=== PATIENT | male | born 1945 | race Caucasian/White ===

== ENCOUNTER 2021-01-22 09:37 | Outpatient (CLI) | payer MEDICARE, BC | END 2021-01-22 09:38 | disposition home or self-care (01) | LOC: CSHRAD 09:37 | PROVIDERS: ATTEND Internal Medicine | DX: M54.59 Other low back pain (principal); M47.816 Spondylosis without myelopathy or radiculopathy, lumbar region; M48.56XA Collapsed vertebra, not elsewhere classified, lumbar region, initial encounter for fracture | CPT/HCPCS: 72100 ==

== ENCOUNTER 2021-02-12 08:05 | Outpatient (CLI) | payer MEDICARE, BC | END 2021-02-12 08:06 | disposition home or self-care (01) | LOC: CSHNM 08:05 | PROVIDERS: ATTEND Internal Medicine | DX: R74.8 Abnormal levels of other serum enzymes (principal); M80.00XD Age-related osteoporosis with current pathological fracture, unspecified site, subsequent encounter for fracture with routine healing; R93.6 Abnormal findings on diagnostic imaging of limbs | CPT/HCPCS: 78306; A9503 ==